=== PATIENT | female | born 1955 | race Hispanic/Latino ===

== ENCOUNTER → 2018-08-10 | Outpatient (CLI) | payer MEDICARE ==
[~2018-08-10] MED LIST: ASPI-1197 PO; BRINOS OS; BUSP10TA3 PO; CANA300T PO; DULO60CA63 PO; ESTRADIOL PATCH TD; HYDR-4068 PO; INSLAN SQ; INSU100C14 SQ; METF-444 PO; NIAC1000 PO; PANT40TA25 PO; PIOG30TA70 PO; PROG100C6 PO; SERT50TA12 PO; SIMV20TA6 PO; TIMO.5OS OS; TIZA4CAP8 PO; XALA2.5OS OS; XANAX PO
== END | disposition home or self-care (01) ==
LOC: SHCH 13:10
PROVIDERS: ATTEND Internal Medicine Cardiovascular Disease
DX: I65.23 Occlusion and stenosis of bilateral carotid arteries (principal); I11.9 Hypertensive heart disease without heart failure
CPT/HCPCS: 93306; 93880

== ENCOUNTER → 2018-08-14 | Outpatient (CLI) | payer MEDICARE ==
[~2018-08-14] VITALS: Ht 162.6 cm; Wt 106.1 kg
[~2018-08-14] MED LIST changes: +REGADENOSON 0.4 MG/5 ML PF SYG IVP SCH
== END | disposition home or self-care (01) ==
LOC: SHCH 08:43
PROVIDERS: ATTEND Internal Medicine Cardiovascular Disease
DX: I25.10 Atherosclerotic heart disease of native coronary artery without angina pectoris (principal)
CPT/HCPCS: 78452; 93017; 96374; A9500 ×2; J2785

== ENCOUNTER 2018-10-02 22:25 | Emergency (ER) | payer MEDICARE ==
[~2018-10-02 22:25] MED LIST changes: -REGADENOSON 0.4 MG/5 ML PF SYG IVP SCH
[2018-10-02] MEDS ORDERED: ASPIRIN 325 MG TABLET ONE (22:49)
[2018-10-02] MEDS ORDERED: IPRATROPIUM/ALBUTEROL SULFATE 3 ML SOLUTION IH ONE (23:10)
[2018-10-02 23:13] LABS: MEAN CORPUSCULAR HEMOGLOBIN 27.7 pg (27.0-33.0); WHITE BLOOD COUNT (AUTO) 6.8 K/uL (4.8-10.8)
[2018-10-02 23:19] LABS: BASOPHILS % (AUTO) 0.8 % (0.0-5.0); EOSINOPHILS % (AUTO) 4.4 % (0.0-8.0); HEMATOCRIT 33.4 % (36-48); LYMPHOCYTES % (AUTO) 34.5 % (21.0-51.0); MEAN CORPUSCULAR HGB CONC 32.6 g/dL (32.0-36.0); MONOCYTES % (AUTO) 9.8 % (3.0-13.0); NEUTROPHILS % (AUTO) 50.5 % (40.0-77.0); PLATELET COUNT (AUTO) 268 K/uL (130-400); RED BLOOD CELL COUNT(AUTO) 3.93 MIL/uL (4.00-5.50); RED CELL DISTRIBUTION WIDTH 14.9 % (11.0-15.5)
[2018-10-02 23:31] LABS: CREATININE 1.3 mg/dL (0.5-1.5)
[2018-10-02 23:35] LABS: ALBUMIN 3.1 g/dL (3.5-5.0); BILIRUBIN,TOTAL 0.3 mg/dL (0.2-1.0); TOTAL PROTEIN, SERUM 7.5 g/dL (6.0-8.3)
[2018-10-02 23:38] LABS: INR 0.89 (0.85-1.15); PARTIAL THROMBOPLASTIN TIME 29.9 SEC (26.3-35.5); PROTHROMBIN TIME 9.4 SEC (9.6-11.6)
[2018-10-02 23:53] LABS: B-TYPE NATRIURETIC PEPTIDE 33 pg/mL (0-100)
[2018-10-03] MEDS ORDERED: PREDNISONE 20 MG TABLET ONE (00:08)
[2018-10-03] MEDS ORDERED: ALBUTEROL SULFATE 0.083% 2.5 MG/3 ML INH IH ONE (00:18)
== END 2018-10-03 01:27 | disposition home or self-care (01) ==
LOC: EDH 22:25
DX: J45.909 Unspecified asthma, uncomplicated (principal); Z88.8 Allergy status to other drugs, medicaments and biological substances; Z95.0 Presence of cardiac pacemaker
CPT/HCPCS: 36415; 71046; 80053; 82550; 83605; 83690; 83880; 84484; 85025; 85610; 85730; 93005; 94640

== ENCOUNTER 2018-11-03 05:08 | Emergency (ER) | payer MEDICARE ==
[~2018-11-03 05:08] MED LIST changes: -DULO60CA63 PO; +DULO60CA64 PO; +LEVO750T46 PO; +PROG100C11 PO; -PROG100C6 PO
== END 2018-11-03 06:13 | disposition home or self-care (01) ==
LOC: EDH 05:08
DX: F41.9 Anxiety disorder, unspecified (principal); E11.9 Type 2 diabetes mellitus without complications; Z95.1 Presence of aortocoronary bypass graft; Z79.4 Long term (current) use of insulin; Z88.8 Allergy status to other drugs, medicaments and biological substances; Z90.49 Acquired absence of other specified parts of digestive tract; Z98.890 Other specified postprocedural states
CPT/HCPCS: 93005

== ENCOUNTER → 2018-11-29 | Outpatient (CLI) | payer MEDICARE ==
[~2018-11-29] MED LIST changes: +ALBUTEROL SULFATE 0.083% 2.5 MG/3 ML INH IH ONE
== END | disposition home or self-care (01) ==
LOC: RESP 09:55
PROVIDERS: ATTEND Internal Medicine Cardiovascular Disease
DX: J45.909 Unspecified asthma, uncomplicated (principal); J40 Bronchitis, not specified as acute or chronic
CPT/HCPCS: 94060; 94727; 94729

== ENCOUNTER 2018-11-30 02:50 | Emergency (ER) | payer MEDICARE ==
[~2018-11-30 02:50] MED LIST changes: -ALBUTEROL SULFATE 0.083% 2.5 MG/3 ML INH IH ONE
[2018-11-30] MEDS ORDERED: DiphenhydrAMINE HCL 50 MG/ML VIAL ONE (03:16)
== END 2018-11-30 04:41 | disposition home or self-care (01) ==
LOC: EDH 02:50
DX: F41.9 Anxiety disorder, unspecified (principal); G47.00 Insomnia, unspecified; E11.9 Type 2 diabetes mellitus without complications; Z79.4 Long term (current) use of insulin; Z90.49 Acquired absence of other specified parts of digestive tract; Z88.8 Allergy status to other drugs, medicaments and biological substances
CPT/HCPCS: 93005; 96372; 99284; J1200

== ENCOUNTER → 2020-07-18 | Outpatient (CLI) | payer MEDICARE ==
[~2020-07-18] VITALS: Ht 162.6 cm; Wt 109.3 kg
[~2020-07-18] MED LIST changes: -PANT40TA25 PO; +PANT40TA54 PO; +REGADENOSON 0.4 MG/5 ML PF SYG IVP SCH; +SERT-439 PO; -SERT50TA12 PO; +SIMV-43 PO; -SIMV20TA6 PO
== END | disposition home or self-care (01) ==
LOC: SHCH 08:23
PROVIDERS: ATTEND Internal Medicine Cardiovascular Disease
DX: I10 Essential (primary) hypertension (principal); I25.10 Atherosclerotic heart disease of native coronary artery without angina pectoris
CPT/HCPCS: 78452; 93017; 96374; A9500 ×2; J2785

== ENCOUNTER → 2020-07-28 | Outpatient (CLI) | payer MEDICARE ==
[~2020-07-28] MED LIST changes: -REGADENOSON 0.4 MG/5 ML PF SYG IVP SCH
== END | disposition home or self-care (01) ==
LOC: SHCH 10:59
PROVIDERS: ATTEND Internal Medicine Cardiovascular Disease
DX: I65.23 Occlusion and stenosis of bilateral carotid arteries (principal); I73.9 Peripheral vascular disease, unspecified
CPT/HCPCS: 93880; 93925

== ENCOUNTER → 2020-08-13 | Outpatient (CLI) | payer MEDICARE | END | disposition home or self-care (01) | LOC: SHCH 15:21 | PROVIDERS: ATTEND Internal Medicine Cardiovascular Disease | DX: R01.1 Cardiac murmur, unspecified (principal) | CPT/HCPCS: 93306; 93356 ==

== ENCOUNTER 2021-04-27 06:23 | Day surgery (SDC) | payer OTHER, MEDICARE ==
[2021-04-23 11:51] LABS: BASOPHILS % (AUTO) 0.5 % (0.0-5.0); EOSINOPHILS % (AUTO) 3.4 % (0.0-8.0); HEMATOCRIT 32.4 % (36-48); LYMPHOCYTES % (AUTO) 22.2 % (21.0-51.0); MEAN CORPUSCULAR HEMOGLOBIN 29.1 pg (27.0-33.0); MEAN CORPUSCULAR HGB CONC 32.1 g/dL (32.0-36.0); MEAN CORPUSCULAR VOLUME 90.5 fL (79-99); MONOCYTES % (AUTO) 9.6 % (3.0-13.0); NEUTROPHILS % (AUTO) 63.8 % (40.0-77.0); PLATELET COUNT (AUTO) 231 K/uL (130-400); RED BLOOD CELL COUNT(AUTO) 3.58 MIL/uL (4.00-5.50); RED CELL DISTRIBUTION WIDTH 14.4 % (11.0-15.5); WHITE BLOOD COUNT (AUTO) 8.4 K/uL (4.8-10.8)
[2021-04-23 11:57] LABS: CREATININE 2.2 mg/dL (0.5-1.5); POTASSIUM 4.3 mmol/L (3.5-5.1)
[2021-04-23 11:59] LABS: INR 0.98 (0.85-1.15); PROTHROMBIN TIME 10.7 SEC (9.6-11.6)
[2021-04-23 12:00] LABS: PARTIAL THROMBOPLASTIN TIME 23.9 SEC (26.3-35.5)
[2021-04-23 12:08] LABS: APPEARANCE,URINE Turbid (CLEAR); BILIRUBIN,URINE Small (NEGATIVE); COLOR,URINE Dark Yellow (YELLOW); GLUCOSE, URINE (UA) Negative (NEGATIVE); KETONES,URINE Trace mg/dL (NEGATIVE); LEUKOCYTE ESTERASE ,URINE Large (NEGATIVE); NITRATE,URINE Negative (NEGATIVE); OCCULT BLOOD,URINE Nonhemolyzed Trace (NEGATIVE); PROTEIN,URINE POS 1+ mg/dL (NEGATIVE)
[2021-04-23 12:17] LABS: BACTERIA,URINE Moderate /HPF (None Seen); HYALINE CASTS, URINE 0-1 /LPF (0-1 /LPF); RBC,URINE 0-1 /HPF (0-1); SQUAMOUS EPITHELIAL CELL,UR Rare /HPF (0-2); WBC,URINE >100 /HPF (0-1)
[2021-04-23 14:29] VITALS: BP 169/80
[2021-04-27] VITALS (11 sets, daily range): BP systolic 100–149; BP diastolic 54–66
[~2021-04-27] VITALS: Ht 162.6 cm; Wt 105.7 kg
[~2021-04-27 06:23] MED LIST changes: +0.9% NACL 500ML IV.SOLN 500 ML IV SCH; -LEVO750T46 PO
[2021-04-27 07:27] LABS: CREATININE 1.2 mg/dL (0.5-1.5); POTASSIUM 4.3 mmol/L (3.5-5.1)
[2021-04-27] MEDS ORDERED: 0.9%NACL 1000ML 1,000 ML IV ONE (07:40)
[2021-04-27] MEDS ORDERED: GABA-529 PO (07:48)
[2021-04-27] MEDS ORDERED: NITR0.4T50 SL (07:48)
[2021-04-27] MEDS ORDERED: QUET50TA24 PO (07:48)
[2021-04-27] MEDS ORDERED: MECL-160 PO (07:48)
[2021-04-27] MEDS ORDERED: ROSU10TA28 PO (07:48)
[2021-04-27] MEDS ORDERED: FLUT1BLS IH (07:48)
[2021-04-27] MEDS ORDERED: ALPR0.5T8 PO (07:48)
[2021-04-27] MEDS ORDERED: TRAM50TA4 PO (07:48)
[2021-04-27] MEDS ORDERED: PIOG30TA70 PO (07:48)
[2021-04-27] MEDS ORDERED: METO25TA6 PO (07:48)
[2021-04-27] MEDS ORDERED: MEPERIDINE-PF 25 MG/ML SYG ONE ×4 (08:38→10:17)
[2021-04-27] MEDS ORDERED: IOHEXOL-350 75 ML VIAL IV ONE (08:38)
[2021-04-27] MEDS ORDERED: HEPARIN 10,000 UNIT/10ML (1,000 UNIT/ML) VIAL ONE (08:38)
[2021-04-27] MEDS ORDERED: NITROGLYCERIN 50MG VIAL IV ONE (08:38)
[2021-04-27] MEDS ORDERED: SODIUM BICARB 50MEQ 50ML VIAL 50 ML ONE (08:38)
[2021-04-27] MEDS ORDERED: IOHEXOL 350 MG/ML 100ML INFUS..BTL IV ONE (08:38)
[2021-04-27] MEDS ORDERED: MIDAZOLAM HCL 1 MG/ML 2ML VIAL ONE ×4 (08:39→10:17)
[2021-04-27] MEDS ORDERED: LIDOCAINE HCL 400MG/20ML VIAL ONE (08:39)
[2021-04-27] MEDS ORDERED: ASPIRIN 325MG EC TAB PO ONE (10:46)
[2021-04-27] MEDS ORDERED: CLOPIDOGREL 300MG TAB ONE (10:46)
[2021-04-27] MEDS ORDERED: DEXTROSE 50%-WATER 50 ML DISP.SYRIN IV PRN (11:30)
[2021-04-27] MEDS ORDERED: GLUCAGON 1MG KIT 1 MG ML IM PRN (11:30)
[2021-04-27] MEDS ORDERED: 0.9%NACL 1000ML 1,000 ML IV SCH (11:30)
[2021-04-27] MEDS ORDERED: INSULIN HUMULIN R 100 UNIT/ML 3ML SQ SCH (11:30)
== END 2021-04-27 17:01 | disposition home or self-care (01) ==
LOC: DAH 06:23
PROVIDERS: ATTEND Internal Medicine Cardiovascular Disease
DX: I70.211 Atherosclerosis of native arteries of extremities with intermittent claudication, right leg (principal); I70.92 Chronic total occlusion of artery of the extremities; I25.119 Atherosclerotic heart disease of native coronary artery with unspecified angina pectoris; I77.72 Dissection of iliac artery; E11.51 Type 2 diabetes mellitus with diabetic peripheral angiopathy without gangrene; I10 Essential (primary) hypertension; E66.9 Obesity, unspecified; E78.5 Hyperlipidemia, unspecified; Z79.899 Other long term (current) drug therapy; Z98.890 Other specified postprocedural states; Z79.84 Long term (current) use of oral hypoglycemic drugs; Z82.49 Family history of ischemic heart disease and other diseases of the circulatory system; Z68.41 Body mass index [BMI] 40.0-44.9, adult; Z79.01 Long term (current) use of anticoagulants
CPT/HCPCS: 36415 ×2; 37221; 37224; 71045; 75710; 80048 ×2; 81001; 82948 ×2; 85025; 85610; 85730; 87077; 87088; 87186; 93005; 93458; A4215; A4216; A4221; A4222; A4223 ×3; A4606; A4663; C1725; C1760; C1769 ×2; C1874; C1887; C1893; C1894 ×2; C2623; J1644 ×3; J2175 ×4; J2250 ×4; J3490 ×3; J7030; Q9965 ×2; Q9967 ×2; 99156; 99157

== ENCOUNTER 2021-05-19 19:42 | Emergency (ER) | payer OTHER, MEDICARE ==
[~2021-05-19 19:42] MED LIST changes: -0.9% NACL 500ML IV.SOLN 500 ML IV SCH; +ALPR0.5T8 PO; -BRINOS OS; -BUSP10TA3 PO; -ESTRADIOL PATCH TD; +FLUT1BLS IH; +GABA-529 PO; -INSU100C14 SQ; +MECL-160 PO; +METO25TA6 PO; +NITR0.4T50 SL; -PANT40TA54 PO; -PROG100C11 PO; +QUET50TA24 PO; +ROSU10TA28 PO; -SERT-439 PO; -SIMV-43 PO; -TIMO.5OS OS; -TIZA4CAP8 PO; +TRAM50TA4 PO; -XALA2.5OS OS; -XANAX PO
== END 2021-05-19 20:38 | disposition left against medical advice (07) ==
LOC: EDH 19:42
DX: R10.9 Unspecified abdominal pain (principal); Z53.21 Procedure and treatment not carried out due to patient leaving prior to being seen by health care provider

== ENCOUNTER 2021-05-25 18:14 | Inpatient (IN) | payer OTHER, MEDICARE ==
[~2021-05-25] VITALS: Ht 157.5 cm; Wt 100.6 kg
[2021-05-25 20:12] LABS: BASOPHILS % (AUTO) 0.2 % (0.0-5.0); EOSINOPHILS % (AUTO) 0.2 % (0.0-8.0); HEMATOCRIT 28.8 % (36-48); MEAN CORPUSCULAR HEMOGLOBIN 27.8 pg (27.0-33.0); MEAN CORPUSCULAR VOLUME 81.8 fL (79-99); MONOCYTES % (AUTO) 5.2 % (3.0-13.0); NEUTROPHILS % (AUTO) 85.6 % (40.0-77.0); PLATELET COUNT (AUTO) 292 K/uL (130-400); RED BLOOD CELL COUNT(AUTO) 3.52 MIL/uL (4.00-5.50); WHITE BLOOD COUNT (AUTO) 10.8 K/uL (4.8-10.8)
[2021-05-25 20:23] LABS: CREATININE 3.7 mg/dL (0.5-1.5); POTASSIUM 3.6 mmol/L (3.5-5.1)
[2021-05-25 20:32] LABS: ALBUMIN 2.6 g/dL (3.5-5.0); BILIRUBIN,TOTAL 0.7 mg/dL (0.2-1.0); TOTAL PROTEIN, SERUM 8.1 g/dL (6.0-8.3)
[2021-05-25 20:50] LABS: B-TYPE NATRIURETIC PEPTIDE 87 pg/mL (0-100)
[2021-05-25 21:20] LABS: ABG BASE EXCESS -6.8 mmol/L (-2.0-3.0); ABG HCO3 17.8 mmol/L (21.0-28.0); ABG OXYGEN SATURATION 85.1 % (95.0-99.0); ABG PCO2 33 mmHg (32-45)
[2021-05-25 21:51] LABS: CRP QUANTITATIVE 521.2 mg/L (0.00-9.0); MAGNESIUM 1.8 mg/dL (1.80-2.40)
[2021-05-25] MEDS ORDERED: AZITHROMYCIN 500MG+NS 250ML IVPB SCH (22:00)
[2021-05-25] MEDS ORDERED: DEXAMETHASONE SOD PHOSPHATE 4 MG/ML 1ML VIAL IVP SCH (22:00)
[2021-05-25] MEDS ORDERED: CEFTRIAXONE 1G VIAL IVP SCH (22:00)
[2021-05-25 23:44] LABS: APPEARANCE,URINE SL CLOUDY (CLEAR); BILIRUBIN,URINE MODERATE (NEGATIVE); COLOR,URINE YELLOW (YELLOW); GLUCOSE, URINE (UA) NEGATIVE (NEGATIVE); KETONES,URINE 5 mg/dL (NEGATIVE); LEUKOCYTE ESTERASE ,URINE SMALL (NEGATIVE); NITRATE,URINE NEGATIVE (NEGATIVE); OCCULT BLOOD,URINE MODERATE (NEGATIVE); PH,URINE 5.5 (5.0-8.0); PROTEIN,URINE 100 mg/dL (NEGATIVE)
[2021-05-25 23:53] LABS: AMORPHOUS SEDIMENT,UR Few /LPF (None Seen); BACTERIA,URINE Few /HPF (None Seen); SQUAMOUS EPITHELIAL CELL,UR Few /HPF (0-2)
[2021-05-26] MEDS ORDERED: ACETAMINOPHEN 325 MG TAB PO PRN ×2 (05:30)
[2021-05-26] MEDS ORDERED: HYDRALAZINE 20MG/ML VIAL IV PRN (05:30)
[2021-05-26] MEDS ORDERED: ONDANSETRON 4MG INJ IVP PRN (05:30)
[2021-05-26] MEDS: 0.9%NACL 1000ML 1,000 ML IV SCH ×2 (06:18→15:30)
[2021-05-26 06:46] LABS: CRP QUANTITATIVE 310.1 mg/L (0.00-9.0)
[2021-05-26] MEDS: FAMOTIDINE 20MG TAB PO SCH ×2 (07:41→20:48)
[2021-05-26] MEDS: CEFTRIAXONE 1G VIAL IVP SCH (07:41)
[2021-05-26] MEDS: ENOXAPARIN SODIUM 30 MG/0.3 ML SQ SCH (07:41)
[2021-05-26] MEDS ORDERED: GENTAMICIN 15 GM CREAM TP SCH (12:30)
[2021-05-26 20:00] VITALS: BP 129/54
[2021-05-26] MEDS ORDERED: GLUCAGON 1MG KIT 1 MG ML IM PRN (20:00)
[2021-05-26] MEDS ORDERED: DEXTROSE 50%-WATER 50 ML DISP.SYRIN IV PRN (20:00)
[2021-05-26] MEDS: INSULIN HUMULIN R 100 UNIT/ML 3ML SQ SCH (20:50)
[2021-05-26] MEDS ORDERED: DULO60CA64 PO (23:11)
[2021-05-26] MEDS ORDERED: ROSU10TA28 PO (23:11)
[2021-05-26] MEDS ORDERED: HYDR-4068 PO (23:11)
[2021-05-26] MEDS ORDERED: METF-444 PO (23:11)
[2021-05-27] VITALS: BP 141/69
[2021-05-27 06:00] VITALS: BP 151/78
[2021-05-27] MEDS: 0.9%NACL 1000ML 1,000 ML IV SCH (06:16)
[2021-05-27] MEDS: INSULIN HUMULIN R 100 UNIT/ML 3ML SQ SCH ×4 (06:17→20:28)
[2021-05-27 06:35] LABS: BASOPHILS % (AUTO) 0.2 % (0.0-5.0); HEMATOCRIT 29.8 % (36-48); LYMPHOCYTES % (AUTO) 6.3 % (21.0-51.0); MEAN CORPUSCULAR HEMOGLOBIN 27.1 pg (27.0-33.0); MEAN CORPUSCULAR HGB CONC 32.9 g/dL (32.0-36.0); MEAN CORPUSCULAR VOLUME 82.5 fL (79-99); MONOCYTES % (AUTO) 5.2 % (3.0-13.0); NEUTROPHILS % (AUTO) 87.4 % (40.0-77.0); PLATELET COUNT (AUTO) 329 K/uL (130-400); RED BLOOD CELL COUNT(AUTO) 3.61 MIL/uL (4.00-5.50); RED CELL DISTRIBUTION WIDTH 14.5 % (11.0-15.5); WHITE BLOOD COUNT (AUTO) 5.4 K/uL (4.8-10.8)
[2021-05-27 06:49] LABS: ALBUMIN 2.2 g/dL (3.5-5.0); BILIRUBIN,TOTAL 0.3 mg/dL (0.2-1.0); CREATININE 1.3 mg/dL (0.5-1.5); POTASSIUM 3.6 mmol/L (3.5-5.1); TOTAL PROTEIN, SERUM 7.8 g/dL (6.0-8.3)
[2021-05-27 08:00] VITALS: BP 160/90
[2021-05-27] MEDS: FAMOTIDINE 20MG TAB PO SCH ×2 (08:55→20:27)
[2021-05-27] MEDS: CEFTRIAXONE 1G VIAL IVP SCH (08:55)
[2021-05-27] MEDS: ENOXAPARIN SODIUM 30 MG/0.3 ML SQ SCH (08:58)
[2021-05-27 12:00] VITALS: BP 148/69
[2021-05-27 16:00] VITALS: BP 155/97
[2021-05-27 20:00] VITALS: BP 108/50
[2021-05-28] VITALS: BP 147/71
[2021-05-28 04:00] VITALS: BP 135/80
[2021-05-28 05:00] LABS: BASOPHILS % (AUTO) 0.1 % (0.0-5.0); HEMATOCRIT 28.3 % (36-48); LYMPHOCYTES % (AUTO) 6.3 % (21.0-51.0); MEAN CORPUSCULAR HEMOGLOBIN 27.6 pg (27.0-33.0); MEAN CORPUSCULAR HGB CONC 33.2 g/dL (32.0-36.0); MEAN CORPUSCULAR VOLUME 83.2 fL (79-99); NEUTROPHILS % (AUTO) 86.3 % (40.0-77.0); PLATELET COUNT (AUTO) 329 K/uL (130-400); RED CELL DISTRIBUTION WIDTH 14.6 % (11.0-15.5); WHITE BLOOD COUNT (AUTO) 7.7 K/uL (4.8-10.8)
[2021-05-28 05:23] LABS: BILIRUBIN,TOTAL 0.3 mg/dL (0.2-1.0); CREATININE 1.1 mg/dL (0.5-1.5); POTASSIUM 3.1 mmol/L (3.5-5.1); TOTAL PROTEIN, SERUM 6.8 g/dL (6.0-8.3)
[2021-05-28] MEDS: INSULIN HUMULIN R 100 UNIT/ML 3ML SQ SCH ×4 (06:38→21:00)
[2021-05-28 08:00] VITALS: BP 148/80
[2021-05-28] MEDS: CEFTRIAXONE 1G VIAL IVP SCH (08:59)
[2021-05-28] MEDS: FAMOTIDINE 20MG TAB PO SCH ×2 (08:59→21:13)
[2021-05-28] MEDS: ENOXAPARIN SODIUM 30 MG/0.3 ML SQ SCH (08:59)
[2021-05-28] MEDS ORDERED: POTASSIUM CHLORIDE 20MEQ/100ML 100 ML IV PRN (10:00)
[2021-05-28] MEDS ORDERED: POTASSIUM CHLORIDE 10% ELIXIR 20 MEQ/15 ML UDCUP PO PRN (10:00)
[2021-05-28] MEDS ORDERED: LIDOCAINE HCL-MPF 1% 2ML VIAL IV PRN (10:00)
[2021-05-28] MEDS: KCL 20 MEQ ERTAB PO PRN ×3 (10:34→14:15)
[2021-05-28 12:00] VITALS: BP 119/82
[2021-05-28 16:00] VITALS: BP 139/79
[2021-05-28 20:00] VITALS: BP 110/53
[2021-05-29] VITALS: BP 131/60
[2021-05-29 04:00] VITALS: BP 118/76
[2021-05-29] MEDS: INSULIN HUMULIN R 100 UNIT/ML 3ML SQ SCH ×3 (07:00→17:36)
[2021-05-29 08:00] VITALS: BP 145/74
[2021-05-29] MEDS: CEFTRIAXONE 1G VIAL IVP SCH (09:29)
[2021-05-29] MEDS: FAMOTIDINE 20MG TAB PO SCH (09:30)
[2021-05-29] MEDS: ENOXAPARIN SODIUM 30 MG/0.3 ML SQ SCH (09:30)
[2021-05-29] MEDS: KCL 20 MEQ ERTAB PO PRN ×2 (09:30→15:59)
[2021-05-29 12:00] VITALS: BP 103/75
[2021-05-29 16:00] VITALS: BP 143/46
[2021-05-29] MEDS ORDERED: PRED10TA3 PO (16:35)
[2021-05-29] MEDS ORDERED: CEPH250C2 PO (16:35)
[2021-05-29 20:08] VITALS: BP 121/63
== END 2021-05-29 21:20 | disposition home or self-care (01) | DRG 177 ==
LOC: EDH 18:14 → EDHIP 21:41 → OBSVTOIN 21:41 → 4BH 05-26 18:14
PROVIDERS: ADMIT Internal Medicine Critical Care Medicine; ATTEND Internal Medicine Critical Care Medicine
DX: U07.1 COVID-19 (principal); J12.82 Pneumonia due to coronavirus disease 2019; J96.01 Acute respiratory failure with hypoxia; N17.9 Acute kidney failure, unspecified; N39.0 Urinary tract infection, site not specified; Z68.41 Body mass index [BMI] 40.0-44.9, adult; E11.621 Type 2 diabetes mellitus with foot ulcer; E66.9 Obesity, unspecified; E78.5 Hyperlipidemia, unspecified; I10 Essential (primary) hypertension; R79.89 Other specified abnormal findings of blood chemistry; R29.6 Repeated falls; E11.51 Type 2 diabetes mellitus with diabetic peripheral angiopathy without gangrene; L97.519 Non-pressure chronic ulcer of other part of right foot with unspecified severity; K75.9 Inflammatory liver disease, unspecified; F41.9 Anxiety disorder, unspecified; Z97.0 Presence of artificial eye; Z79.82 Long term (current) use of aspirin; Z79.51 Long term (current) use of inhaled steroids; Z79.84 Long term (current) use of oral hypoglycemic drugs; Z79.4 Long term (current) use of insulin; Z79.899 Other long term (current) drug therapy; Z88.8 Allergy status to other drugs, medicaments and biological substances
CPT/HCPCS: 36415; 36600; 71045; 72100; 73522; 80053; 81001; 82803; 82948; 83615; 83735; 83880; 84132; 84145; 84484; 85025; 85378; 86140; 87040; 87635; 87804; 93005; 93970; 94760; C9803; G0378; J0456; J0696; J1100; J1650; J1815; J7030

== ENCOUNTER → 2023-02-18 | Outpatient (CLI) | payer OTHER, MEDICARE ==
[~2023-02-18] MED LIST changes: -ASPI-1197 PO; -CANA300T PO; +CEPH250C2 PO; -INSLAN SQ; -MECL-160 PO; +MECL-302 PO; -NIAC1000 PO; +PRED10TA3 PO
== END | disposition home or self-care (01) ==
LOC: SHCH 10:36
PROVIDERS: ATTEND Internal Medicine Cardiovascular Disease
DX: I35.1 Nonrheumatic aortic (valve) insufficiency (principal); I65.21 Occlusion and stenosis of right carotid artery; I25.119 Atherosclerotic heart disease of native coronary artery with unspecified angina pectoris; R06.00 Dyspnea, unspecified; I11.9 Hypertensive heart disease without heart failure; E78.5 Hyperlipidemia, unspecified; E11.9 Type 2 diabetes mellitus without complications
CPT/HCPCS: 93306

== ENCOUNTER → 2023-02-28 | Outpatient (CLI) | payer OTHER, MEDICARE ==
[~2023-02-28] MED LIST changes: +REGADENOSON 0.4 MG/5 ML PF SYG IVP ONE
== END | disposition home or self-care (01) ==
LOC: SHCH 10:00
PROVIDERS: ATTEND Internal Medicine Cardiovascular Disease
DX: I25.119 Atherosclerotic heart disease of native coronary artery with unspecified angina pectoris (principal); R06.00 Dyspnea, unspecified
CPT/HCPCS: 78452; 96374; 93017; J2785; A9500 ×2

== ENCOUNTER → 2023-05-30 | Outpatient (CLI) | payer OTHER, MEDICARE ==
[~2023-05-30] MED LIST changes: -REGADENOSON 0.4 MG/5 ML PF SYG IVP ONE
== END | disposition home or self-care (01) ==
LOC: SHCH 10:48
PROVIDERS: ATTEND Internal Medicine Cardiovascular Disease
DX: I65.23 Occlusion and stenosis of bilateral carotid arteries (principal)
CPT/HCPCS: 93880

== ENCOUNTER → 2023-12-19 | Outpatient (CLI) | payer OTHER, MEDICARE ==
[~2023-12-19] MED LIST changes: -ROSU10TA28 PO; +ROSU10TA72 PO
[2023-12-19 13:09] LABS: ALBUMIN 3.3 g/dL (3.5-5.0); BILIRUBIN,TOTAL 0.4 mg/dL (0.2-1.0); POTASSIUM 4.4 mmol/L (3.5-5.1); TOTAL PROTEIN, SERUM 7.7 g/dL (6.0-8.3)
== END | disposition home or self-care (01) ==
LOC: LAB 09:21
PROVIDERS: ATTEND Internal Medicine Cardiovascular Disease
DX: I10 Essential (primary) hypertension (principal)
CPT/HCPCS: 36415; 80053

== ENCOUNTER 2025-01-01 14:15 | Emergency (ER) | payer OTHER, MEDICAID ==
[~2025-01-01] VITALS: Ht 162.6 cm; Wt 81.6 kg
--- NOTE | 2025-01-01 14:47 | ERN ---
General Chief Complaint: Wound Check Stated Complaint: SORE ON RT FOOT Time Seen by MD: 14:17 Time Seen by Midlevel: 14:17 Source: patient History of Present Illness Initial Comments Patient is a 69-year-old female with a past medical history of type 2 diabetes presenting to the emergency department for a wound evaluation. The patient was brought in by her nephew after he noticed of foot ulcer to the right foot. On arrival with the patient denies any fever, chills, or any other symptoms. She just wanted her ulcer evaluated. She has an appointment with her primary care doctor in two days. Allergies: Coded Allergies: Phenothiazines (Unverified Allergy, Unknown, 09/02/15) per h&p liraglutide (Unverified Allergy, Unknown, RASH, 01/30/16) promethazine (Verified Adverse Reaction, Unknown, ANXIETY, 12/01/14) Uncoded Allergies: VENTOZA (Allergy, Unknown, HIVES, 08/05/15) Home Meds Active Scripts Cephalexin (Keflex 250Mg Caps) 250 Mg Capsule, 250 MG PO QID for 5 Days, #20 CAP Prov:EWST [employer]AROS [employer]ING ASSISTANT 05/29/21 Prednisone (Prednisone) 10 Mg Tablet, 10 MG PO DAILY for 5 Days, #5 TAB Prov:WEST [employer]ING ASSISTANT 05/29/21 Reported Medications Rosuvastatin Calcium (Rosuvastatin Calcium) 10 Mg Tablet, 10 MG PO HS, TAB 05/26/21 Metformin HCl (Metformin HCl) 500 Mg Tablet, 500 MG PO BID, TAB 05/26/21 Duloxetine HCl (Duloxetine HCl) 60 Mg Capsule.dr, 60 MG PO AM, CAP 05/26/21 Hydrocodone/Acetaminophen (Hydrocodon-Acetaminophn 10-325) 1 Each Tablet, 1 EACH PO TIDP PRN for PAIN LEVEL 7 TO 10, TAB 05/26/21 Fluticasone/Vilanterol (Breo Ellipta 200-25 Mcg INH) 1 Each Blst.w.dev, 1 EACH IH DAILY 04/27/21 Meclizine HCl (Meclizine HCl) 25 Mg Tablet, 25 MG PO Q8H PRN for DIZZINESS, TAB 04/27/21 Nitroglycerin (Nitroglycerin) 0.4 Mg Tab.subl, 0.4 MG SL AD PRN for CHEST PAIN, TAB.SL 04/27/21 Rosuvastatin Calcium (Rosuvastatin Calcium) 10 Mg Tablet, 10 MG PO DAILY, TAB 04/27/21 Alprazolam (Alprazolam) 0.5 Mg Tablet, 0.5 MG PO Q8H PRN for ANXIETY/AGITATION, TAB 04/27/21 Quetiapine Fumarate (Quetiapine Fumarate) 50 Mg Tablet, 50 MG PO HS, TAB 04/27/21 Gabapentin (Gabapentin) 100 Mg Capsule, 100 MG PO HS, CAP 04/27/21 Pioglitazone HCl (Pioglitazone HCl) 30 Mg Tablet, 30 MG PO DAILY, TAB 04/27/21 Metoprolol Tartrate (Metoprolol Tartrate) 25 Mg Tablet, 25 MG PO BID, TAB 04/27/21 Tramadol Hcl (Tramadol HCl) 50 Mg Tablet, 50 MG PO Q8H PRN for pain, TAB 04/27/21 Past Medical History Past Medical History: Diabetes-Type II, Glaucoma, High Cholesterol, Heart Disease Past Surgical History: Other Surgical History Other: RT FOOT GREAT TOE AMP/ RT FOOT 2ND TOE AMP ROS Dictation CONSTITUTIONAL: Negative except for HPI HEAD/FACE: Negative except for HPI EENT: Negative except for HPI RESPIRATORY: Negative except for HPI GASTROINTESTINAL/ABDOMINAL: Negative except for HPI GENITOURINARY: Negative except for HPI MUSCULOSKELETAL: Negative except for HPI INTEGUMENTARY: Negative except for HPI NEUROLOGICAL/PSYCH: Negative except for HPI HEMATOLOGIC/LYMPHATIC: Negative except for HPI All Systems Negative, Except as noted above. 13 point review of systems assessed and all negative except for above. Physical Exam Physical Exam Dictation Vital Signs reviewed General Appearance: Alert, oriented x 3, no acute distress, well developed, nourished. Head and Face: non-traumatic. Eyes: PERRL, pink conjunctivas, eyelid no trauma, anterior chamber with arcus senilis. Ears: Pinnas intact and no signs of trauma or erythema ear canals clear and no discharge TM no erythema Nose: No discharge, no bleeding. Oropharynx: Mouth normal, tongue pink, pharynx clear,no erythema, tonsils no exudates, no abscesses noted, mucous membrane moist Neck: Supple, non-tender, no thyromegaly, no masses, no JVD, no bruits Breast:Deferred Chest:No tenderness, no crepitus, no paradoxical movement, no retractions Lungs:Clear, well-ventilated, symmetric, no rales, no wheezing, no rhonchi, no stridor, good breath sounds bilaterally Heart: Regular rate, regular rhythm, no murmur, no gallops Vascular: no peripheral edema, Abdomen: Soft, positive bowel sounds, nondistended, no guarding, nontender, no rebound, no masses no hepatomegaly, no splenomegaly, no Cruz's sign, no hernias. Rectal: Deferred Genital: Deferred Neurological: Normal speech, motor function intact, sensory function intact Musculoskeletal: Neck nontender, full range of motion, back nontender, full range of motion, Extremities: nontender, full range of motion Skin: There is a diabetic foot ulcer to the plantar aspect of the right foot measuring 2 x 2 cm, there are no signs of infection, there was no surrounding erythema, induration, or drainable abscess Lymphatic: Deferred MDM MDM: Patient is a 69-year-old female with a past medical history of type 2 diabetes presenting to the emergency department for a wound evaluation. The patient was brought in by her nephew after he noticed of foot ulcer to the right foot. On arrival with the patient denies any fever, chills, or any other symptoms. She just wanted her ulcer evaluated. She has an appointment with her primary care doctor in two days. On physical examination there is a diabetic foot ulcer to the plantar aspect of the right foot measuring 2 x 2 cm, there are no signs of infection, there was no surrounding erythema, induration, or drainable abscess. Vital signs are stable. Patient is afebrile and nontoxic appearing. Based on physical examination being reassuring we will discharged home with wound care management. The patient will be referred to Dr. Hernandez for further evaluation outpatient. The patient is agreeable with this plan and all questions have been answered. No signs of osteomyelitis at this time or cellulitis. Differential diagnosis: Diabetic foot ulcer, cellulitis, osteomyelitis There are no social concerns with this patient. Prescription drug management Prescriptions will include: None Medical management and examination interpretation discussions were had by me with other qualified healthcare professionals as indicated for the patient's care. ED Course Orders Procedure Category Date Status Time *Nursing CPOE 01/01/25 Transmitted Communication: 14:40 Vital Signs Date Time Temp Pulse Resp B/P (MAP) Pulse Ox O2 Delivery O2 Flow Rate FiO2 01/01/25 14:18 98.8 64 18 135/57 97 Room Air 0 DX & DISP Disposition: Discharge Departure Impression: Primary Impression: Diabetic ulcer of right foot Condition: Stable Additional Instructions: Your ulcer does not show any signs of infection at this time. You will need to follow up with the barrel waterer outpatient. Keep your appointment with your primary care doctor on . For now, keep your right foot clean and dry. At this time there are no signs of infection. Referrals: ARMANDO CARTWRIGHT MD (PCP) TYSHAWN HERNANDEZ DPM Time of Disposition: 14:55 I have reviewed the case, and I agree with, Diagnosis and Plan I performed the substantive portion of the visit. I have reviewed and personally made and approve the management plan that is documented in the note by myself or the PHILLIP. I acknowledge for responsibility for the patient's management plan. KEVYN ROSARIO Jan 01, 2025 14:47
[2025-01-01 14:55] VITALS: BP 137/68; PULSE 67; RESP 18; TEMP 98.7; O2SAT 99
== END 2025-01-01 16:00 | disposition home or self-care (01) ==
LOC: EDH 14:15
DX: E11.621 Type 2 diabetes mellitus with foot ulcer (principal); L97.519 Non-pressure chronic ulcer of other part of right foot with unspecified severity; E78.00 Pure hypercholesterolemia, unspecified; I11.9 Hypertensive heart disease without heart failure; Z79.51 Long term (current) use of inhaled steroids; Z79.52 Long term (current) use of systemic steroids; Z79.84 Long term (current) use of oral hypoglycemic drugs; Z79.899 Other long term (current) drug therapy; Z88.8 Allergy status to other drugs, medicaments and biological substances
CPT/HCPCS: 99282